=== PATIENT | male | born 1965 | race Caucasian/White ===

== ENCOUNTER 2023-06-18 01:26 | Emergency (ER) | payer OTHER, MEDICAID, SELFPAY ==
[2023-06-18] VITALS (35 sets, daily range): BP systolic 159–167; BP diastolic 93–109; PULSE 79–99; RESP 15–26; O2SAT 92–99; BMI 28.9
--- NOTE | 2023-06-18 01:32 | ECG_ITS ---
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
--- NOTE | 2023-06-18 01:44 | XR_ITS ---
The [address] [address] Patient Name: TELLO MEHTA MRN: [id number] date: 1965 Sex: M Assigned Patient Location: Current Patient Location: Accession/Order Number: [id number] Exam Date: 06/18/2023 01:55 Report Date: 06/18/2023 02:17 At the request of: ASHER MARKER Procedure: XR chest 1V EXAM: XR chest 1V HISTORY: sob COMPARISON: Chest radiograph dated 09/17/2020. TECHNIQUE: One view of the chest was obtained. FINDINGS: The cardiac silhouette is stable in size. There are hypoventilatory changes with mild bibasilar opacities. There is no significant pneumothorax or pleural effusion. No acute osseous abnormality is seen. XR/XR chest 1V IMPRESSION: 1. Hypoventilatory changes with suspected bibasilar atelectasis. Electronically authenticated by: Sole FERGUSON Date: 06/18/2023 02:17
--- NOTE | 2023-06-18 01:51 | ED.SOB1 ---
HPI - SOB/Dyspnea General Chief Complaint: Shortness of Breath/Dyspnea Stated Complaint: SOB Time Seen by Provider: 06/18/23 01:27 Source: patient Source comment: pt and EMS Mode of arrival: ambulance Limitations: no limitations History of Present Illness HPI Narrative: This 58-year-old male is brought to the emergency department by EMS for evaluation of shortness of breath and chest tightness. The patient states that he had respiratory issues when he was younger but seemed to have outgrown them. Did have a heart murmur when he was younger. He states he is getting ready for bed and started having some shortness of breath and became very sweaty. The patient states that his family physician referred him to a agency appointments supervisor, Dr. Pérez, after he had trouble breathing and passed out several times after getting the COVID 19 vaccination that he was required to have from his job. He states that he also gets migraine headaches and has had a headache for the past month. He denies any nausea or vomiting. He states he felt mildly dizzy earlier. He was diaphoretic upon arrival but doesnt know if he has a fever. He has not had any episodes of syncope recently. He denies a history of tobacco use. He has multiple sores on his body that he states are from scratches that he gets at work that don't heal well because he is diabetic. Related Data Home Medications Medication Instructions Recorded Confirmed atorvastatin 20 mg tablet mg 06/18/23 budesonide-formoterol HFA 160 inhalation 06/18/23 mcg-4.5 mcg/actuation aerosol inhaler insulin glargine 100 unit/mL (3 unit subcut 06/18/23 mL) subcutaneous pen (Lantus Solostar U-100 Insulin) methocarbamol 750 mg tablet mg 06/18/23 montelukast 10 mg tablet mg 06/18/23 Allergies Allergy/AdvReac Type Severity Reaction Status Date / Time cyclobenzaprine Allergy Intermediate Blister Verified 06/18/23 01:33 [From Flexeril] [facility] Social History Smoking status: Never smoker Exam Narrative Exam Narrative: Nurses note and vital signs reviewed and patient is not hypoxic.Blood pressure noted to be elevated at 167/93 General: Alert, diaphoretic, mildly confused adult male, no resp distress Skin: Cool, diaphoretic, no rash Head: Normocephalic, atraumatic Eye: Normal conjunctiva, no drainage, EOMI. PERRL Ears, Nose, Mouth, and Throat: oral mucosa is moist. Nares patent. Cardiovascular: Regular Rate and Rhythm S1S2, no murmurs, rubs or gallops Respiratory: Patient is in no distress, no accessory muscle use, lungs are clear to auscultation, no wheezing, rales or rhonchi Back: non-tender, no CVA tenderness bilaterally to percussion. GI: Normal bowel sounds, no tenderness to palpation, no masses appreciated. No rebound, guarding, or rigidity noted. Musculoskeletal: The patient has no evidence of calf tenderness, no pitting edema, symmetrical pulses noted bilaterally Neurological: A&O x4, normal speech but delayed at times and he seems to be having trouble answering direct questions, no gross focal deficits, no facial droop, upper and lower extremity strength and sensation is intact Constitutional Vital Signs, click to edit/add: Last Vital Signs Pulse 89 06/18/23 06:29 Resp 15 06/18/23 06:29 BP 161/98 H 06/18/23 06:29 Pulse Ox 96 06/18/23 06:29 O2 Del Method Room Air 06/18/23 01:28 Course Vital Signs Vital signs: Vital Signs Pulse Rate 85 06/18/23 01:28 Respiratory Rate 20 06/18/23 01:28 Blood Pressure 167/93 H 06/18/23 01:28 Pulse Oximetry 99 06/18/23 01:28 Oxygen Delivery Method Room Air 06/18/23 01:28 Pulse Rate 89 06/18/23 06:29 Respiratory Rate 15 06/18/23 06:29 Blood Pressure 161/98 H 06/18/23 06:29 Pulse Oximetry 96 06/18/23 06:29 Oxygen Delivery Method Room Air 06/18/23 01:28 MDM - SOB/Dyspnea MDM Narrative Medical decision making narrative: This 58 year old male is brought to the emergency department from home for evaluation of shortness of breath and chest tightness as well as an episode of diaphoresis.. He does not smoke. He states that he sees Dr. Pérez for respiratory issues that started after having the COVID 19 vaccination. He states that he has migraine headaches and has had a headache for the past month. He did have respiratory issues as a child but states that he outgrew them. Upon arrival he was taken to room 8 and an EKG was done that showed a sinus rhythm with a left anterior hemiblock. I did read view a previous EKG from 2020 that appeared to be similar. The patient He was mildly hypertensive upon arrival. He had diminished lung sounds but no wheezing or rhonchi but that he would benefit from a nebulizer treatment. He was given nebulizer treatment with mild clinical improvement. He was medicated with Toradol for his headache and IV fluids. Routine labs are reviewed. He has a Mild elevated white count at 12.9. He has a normal hemoglobin. He has a normal d-dimer. Initial troponin was normal at 11.6 Delta troponin is minimally elevated at 19. He had an elevated lactic acid initially at 3.2 and after a liter of normal saline, repeat lactic is 1.0. Chest xray is negative for acute findings. ETOh was added because the patient at times has some degree of difficulty concentrating and answering questions appropriately and does not recall being transferred from this ED to [facility] for evaluation of shoulder pain that was concerning for ACS. He states he did see a rn new graduate in the past and according to the ER record in 2020, after being transferred to [facility], he had a cardiac cath and echo both of which he reported as negative. He recalls that better after his headache has improved. He states that he has an appointment with his PCP in [place] tomorrow. He declines being admitted. I suspect that his symptoms of confusion and diaphoresis upon arrival may be related to an episode of hypoglycemia as he is no longer confused and is appropriate and able to provide a reasonable history, CT scan of his brain is negative. He was medicated a 0.5mg norco and zofran. He will be given a copy of his EKG, labs and xray reports to share with his PCP at his visit tomorrow. He agrees to return to the ED if his symptoms of chest pain or shortness of breath recur or worsen. Lab Data Labs: Lab Results 06/18/23 06/18/23 06/18/23 Range/Units 01:35 01:55 04:39 WBC 12.9 H (4.0-11.0) 10^3/uL RBC 5.49 (4.70-6.10) 10^6/uL Hgb 16.2 (14.0-18.0) g/dL Hct 47.2 (42.0-54.0) % MCV 86.0 (80.0-94.0) fL MCH 29.5 (25.9-34.0) pg MCHC 34.3 (29.9-35.2) g/dL RDW 12.7 (11.0-15.0) % Plt Count 292 (150-450) 10^3/uL MPV 11.2 (9.5-13.5) fL Neut % (Auto) 70.1 (43.0-75.0) % Lymph % (Auto) 17.7 L (20.5-60.0) % [place] % (Auto) 6.3 (1.7-12.0) % Eos % (Auto) 2.7 (0.9-7.0) % Baso % (Auto) 1.2 (0.2-2.0) % Neut # (Auto) 9.1 H (1.4-6.5) 10^3/uL Lymph # (Auto) 2.3 (1.2-3.8) 10^3/uL [place] # (Auto) 0.8 (0.3-0.8) 10^3/uL Eos # (Auto) 0.4 (0.0-0.7) 10^3/uL Baso # (Auto) 0.2 H (0.0-0.1) 10^3/uL Abs Immat Gran (auto) 0.26 H (0.00-0.03) 10^3/uL Imm/Tot Granulo (auto) 2.0 H (0.0-0.5) % D-Dimer 0.21 (<=0.59) mg/L FEU Sodium 134 L (136-145) mmol/L Potassium 3.3 L (3.5-5.1) mmol/L Chloride 98 (98-107) mmol/L Carbon Dioxide 26.9 (21.0-32.0) mmol/L Anion Gap 12.4 BUN 18.0 (7.0-18.0) mg/dL Creatinine 0.98 (0.70-1.30) mg/dL Est GFR ( Amer) >60 (>=60) Est GFR (Non-Af Amer) >60 (>=60) BUN/Creatinine Ratio 18.4 Glucose 154 H (74-106) mg/dL Lactate 3.2 H* 1.0 (0.4-2.0) mmol/L Calcium 9.4 (8.5-10.1) mg/dL Total Bilirubin 0.4 (0.2-1.0) mg/dL AST 16 (15-37) U/L ALT 33 (16-63) U/L Alkaline Phosphatase 96 (46-116) U/L Troponin I High Sens 11.6 19.7 (4.0-76.1) pg/mL NT-Pro-B Natriuret Pep 297.0 (<=900.0) pg/mL Total Protein 7.9 (6.4-8.2) g/dL Albumin 3.6 (3.4-5.0) g/dL Globulin 4.3 g/dL Albumin/Globulin Ratio 0.8 Ethanol Quant <3 mg/dL SARS-CoV-2 (PCR) Negative (NEGATIVE) ECG Data Attestation: I personally reviewed and interpreted this ECG as follows: (Sinus rhythm at 84 beats for minute, left axis deviation, left anterior hemiblock, nonspecific ST changes, no acute ST segment elevation or T-wave inversion, voltage criteria for left ventricular hypertrophy) Discharge Plan Discharge Chief Complaint: Shortness of Breath/Dyspnea Clinical Impression: Shortness of breath, Headache, migraine, Non-cardiac chest pain Time of Disposition Decision: 06:55 Condition: Good Prescriptions / Home Meds: No Action atorvastatin 20 mg tablet methocarbamol 750 mg tablet montelukast 10 mg tablet budesonide-formoterol 160-4.5 mcg/actuation HFA aerosol inhaler INHALATION insulin glargine [Lantus Solostar U-100 Insulin] 100 unit/mL (3 mL) insulin pen SUBCUT Instructions: Migraine Headache (ED), Noncardiac Chest Pain (ED), Shortness of Breath (ED) Additional Instructions: Monitor your blood sugar closely, return to the emergency department for recurrent or worsening chest pain, shortness of breath, dizziness diaphoresis or any concerns. Please share the results of your EKG, blood work and radiographic studies with the your family physician tomorrow at your visit. Stand Alone Forms: Portal Instructions Referrals: Physician,Non-Staff, MD [Primary Care Provider] - 1 week
[2023-06-18 01:56] LABS: Basophils Absolute Auto 0.2 10^3/uL (0.0-0.1); Basophils Percent Auto 1.2 % (0.2-2.0); Eosinophils Absolute Auto 0.4 10^3/uL (0.0-0.7); Eosinophils Percent Auto 2.7 % (0.9-7.0); Hematocrit 47.2 % (42.0-54.0); Hemoglobin 16.2 g/dL (14.0-18.0); Immature Granulocytes Abs Auto 0.26 10^3/uL (0.00-0.03); Lymphocytes Absolute Auto 2.3 10^3/uL (1.2-3.8); Lymphocytes Percent Auto 17.7 % (20.5-60.0); Mean Corpuscular HGB Conc 34.3 g/dL (29.9-35.2); Mean Corpuscular Hemoglobin 29.5 pg (25.9-34.0); Mean Platelet Volume 11.2 fL (9.5-13.5); Monocytes Absolute Auto 0.8 10^3/uL (0.3-0.8); Monocytes Percent Auto 6.3 % (1.7-12.0); Neutrophils Absolute Auto 9.1 10^3/uL (1.4-6.5); Neutrophils Percent Auto 70.1 % (43.0-75.0); Platelet Count 292 10^3/uL (150-450); Red Blood Count 5.49 10^6/uL (4.70-6.10); Red Cell Distribution Width 12.7 % (11.0-15.0); White Blood Count 12.9 10^3/uL (4.0-11.0)
[2023-06-18 01:58] LABS: D Dimer 0.21 mg/L FEU (<=0.59)
[2023-06-18 02:01] LABS: Alanine Aminotransferase 33 U/L (16-63); Albumin Globulin Ratio 0.8; Albumin Level 3.6 g/dL (3.4-5.0); Alkaline Phosphatase 96 U/L (46-116); Anion Gap 12.4; Aspartate Amino Transferase 16 U/L (15-37); BUN Creatinine Ratio 18.4; Bilirubin Total 0.4 mg/dL (0.2-1.0); Calcium 9.4 mg/dL (8.5-10.1); Carbon Dioxide 26.9 mmol/L (21.0-32.0); Chloride 98 mmol/L (98-107); Estimated GFR (African America >60 (>=60); Estimated GFR (Non-African Ame >60 (>=60); Globulin 4.3 g/dL; Glucose 154 mg/dL (74-106); Potassium 3.3 mmol/L (3.5-5.1); Sodium 134 mmol/L (136-145); Total Protein 7.9 g/dL (6.4-8.2)
[2023-06-18] MEDS: 0.9 % SODIUM CHLORIDE 1,000 ML 1000 ML IV (02:03)
[2023-06-18] MEDS: KETOROLAC TROMETHAMINE 30 MG/ML VIAL IVP (02:04)
[2023-06-18 02:08] LABS: Troponin I High Sensitivity 11.6 pg/mL (4.0-76.1)
[2023-06-18] MEDS: IPRATROPIUM/ALBUTEROL SULFATE 3 ML AMPUL.NEB IH (02:08)
[2023-06-18 02:15] LABS: SARS-CoV-2 Ag NEGATIVE (NEGATIVE)
[2023-06-18 02:28] LABS: Lactate/Lactic Acid 3.2 mmol/L (0.4-2.0)
[2023-06-18 03:23] LABS: Ethanol <3 mg/dL
--- NOTE | 2023-06-18 04:02 | CT_ITS ---
The [address] [address] Patient Name: TELLO MEHTA MRN: [id number] date: 1965 Sex: M Assigned Patient Location: Current Patient Location: Accession/Order Number: [id number] Exam Date: 06/18/2023 04:50 Report Date: 06/18/2023 05:14 At the request of: ASHER MARKER Procedure: CT head/brain wo con EXAM: CT head/brain wo con HISTORY: ams . Headache for one month. COMPARISON: None. TECHNIQUE: Nonenhanced CT imaging of the head was performed with sagittal and coronal reconstructions. FINDINGS: No intracranial hemorrhage, acute ischemia, vasogenic edema, mass effect or midline shift is seen. The brain parenchyma, ventricles and extra-axial CSF spaces are unremarkable for age. The calvarium and imaged facial bones are intact. There is nasal septal deviation to the right anteriorly. The paranasal sinuses and bilateral mastoid air cells appear clear. CT/CT head/brain wo con IMPRESSION: No acute intracranial abnormality. Electronically authenticated by: SANDRA MEZA Date: 06/18/2023 05:14
[2023-06-18] MEDS: 0.9 % SODIUM CHLORIDE 1,000 ML 125 ML IV (04:45)
[2023-06-18 05:04] LABS: Troponin I High Sensitivity 19.7 pg/mL (4.0-76.1)
[2023-06-18] MEDS: HYDROCODONE/ACET 5-325 MG TABLET 0.5 TAB PO (06:27)
[2023-06-18] MEDS: ONDANSETRON PF 4 MG/2 ML VIAL IV (06:27)
[2023-06-19 12:59] LABS: SARS-CoV-2 NAA NOT DETECTED (NOT DETECTE)
== END 2023-06-18 06:59 | disposition home or self-care (01) ==
PROVIDERS: Emergency Provider Emergency Medicine
DX: R06.02 Shortness of breath (principal); R07.89 Other chest pain; G43.909 Migraine, unspecified, not intractable, without status migrainosus; E11.9 Type 2 diabetes mellitus without complications; Z79.899 Other long term (current) drug therapy; Z79.4 Long term (current) use of insulin; Z20.822 Contact with and (suspected) exposure to COVID-19
CPT/HCPCS: 36415; 70450; 71045; 80053; 80320; 83605; 83880; 84484; 85025; 85378; 87635; 87811; 93005; 94640; 96361; 96374; 96375; 99285